=== PATIENT | female | born 1995 | race Caucasian/White ===

== ENCOUNTER 2016-10-23 16:06 | Inpatient (IN) | payer OTHER ==
[~2016-10-23] VITALS: Ht 165.1 cm; Wt 82.6 kg
[2016-10-23 17:15] VITALS: BP 125/67
[2016-10-23] MEDS ORDERED: METHYLERGONOVINE 0.2 MG/ML AMP IM PRN (17:15)
[2016-10-23] MEDS ORDERED: PROMETHAZINE 25 MG/ML VIAL IVP PRN (17:15)
[2016-10-23] MEDS ORDERED: CARBOPROST 250 MCG/ML AMP IM PRN (17:15)
[2016-10-23] MEDS ORDERED: OXYTOCIN 20 UNITS/LR PREMIX 1,000 ML IV SCH (17:15)
[2016-10-23] MEDS ORDERED: OXYTOCIN 10 UNITS/ML VIAL IM SCH ×2 (17:15→17:20)
[2016-10-23] MEDS ORDERED: NALBUPHINE HYDROCHLORIDE 10 MG/ML VIAL IVP PRN (17:15)
[2016-10-23] MEDS ORDERED: OXYTOCIN 20 UNITS/LR PREMIX 1,000 ML IV ONE (17:48)
[2016-10-23 18:06] LABS: BASOPHILS # (AUTO) 0.1 K/uL (0.00-0.22); BASOPHILS % (AUTO) 0.9 % (0.0-2.0); EOSINOPHILS # (AUTO) 0.2 K/uL (0-0.4); EOSINOPHILS % (AUTO) 2.7 % (0.0-4.0); HEMATOCRIT 35.6 % (36-48); HEMOGLOBIN 11.2 g/dL (12.0-16.0); LYMPHOCYTES # (AUTO) 2.4 K/uL (2.5-16.5); LYMPHOCYTES % (AUTO) 27.4 % (20.5-51.1); MEAN CORPUSCULAR HEMOGLOBIN 27 pg (27-31); MEAN CORPUSCULAR HGB CONC 31 g/dL (33-37); MEAN CORPUSCULAR VOLUME 86 fL (80-94); MONOCYTES # (AUTO) 0.7 K/uL (0.8-1.0); MONOCYTES % (AUTO) 7.3 % (1.7-9.3); NEUTROPHILS # (AUTO) 5.5 K/uL (1.8-7.7); NEUTROPHILS % (AUTO) 61.7 % (42.2-75.2); PLATELET COUNT (AUTO) 268 K/uL (140-450); RED BLOOD CELL COUNT(AUTO) 4.13 MIL/uL (4.20-5.40); RED CELL DISTRIBUTION WIDTH 14.2 % (11.6-13.7); WHITE BLOOD COUNT (AUTO) 8.9 K/uL (4.8-10.8)
[2016-10-23 18:12] LABS: APPEARANCE,URINE CLEAR (CLEAR); BILIRUBIN,URINE NEGATIVE (NEGATIVE); BLOOD, URINE NEGATIVE (NEGATIVE); COLOR,URINE YELLOW (YELLOW); LEUKOCYTE ESTERASE ,URINE NEGATIVE (NEGATIVE); NITRITE, URINE NEGATIVE (NEGATIVE); PROTEIN,URINE NEGATIVE (NEGATIVE); UGLUCOSE NEGATIVE (NEGATIVE); UROBILINOGEN,URINE 0.2 EU/dL (0.2 - 1)
[2016-10-23 18:17] LABS: BACTERIA,URINE RARE /HPF (None Seen); MUCUS,URINE 4+ /LPF (None Seen); RBC,URINE 0-3 /HPF (0-5); WBC,URINE 0-3 /HPF (0-5)
[2016-10-23] MEDS: LACTATED RINGERS 1,000 ML IV SCH (18:22)
[2016-10-23 18:29] LABS: ALBUMIN 2.7 g/dL (3.4-5.0); ANION GAP 13.8 (8-16); CALCIUM 8.5 mg/dL (8.5-10.1); CARBON DIOXIDE 23.7 mmol/L (21-32); CREATININE 0.5 mg/dL (0.6-1.3); POTASSIUM 3.5 mmol/L (3.5-5.1); TOTAL BILIRUBIN 0.2 mg/dL (0.0-1.0); TOTAL PROTEIN, SERUM 6.3 g/dL (6.4-8.2)
[2016-10-23] MEDS ORDERED: PREN-380 PO (19:25)
[2016-10-23] MEDS ORDERED: IRON65TA11 PO (19:25)
[2016-10-24] MEDS: LACTATED RINGERS 1,000 ML IV SCH ×2 (01:23→23:56)
[2016-10-24] MEDS ORDERED: PROMETHAZINE 25 MG/ML VIAL ONE ×2 (03:43→04:31)
[2016-10-24] MEDS ORDERED: NALBUPHINE HYDROCHLORIDE 10 MG/ML VIAL ONE ×2 (03:43→04:31)
[2016-10-24] MEDS ORDERED: LIDOCAINE 1% 500 MG/50 ML VIAL INJ SCH (04:50)
[2016-10-24] MEDS ORDERED: LIDOCAINE 1% 50 ML ONE (05:02)
[2016-10-24] MEDS ORDERED: OXYTOCIN 10 UNITS/ML VIAL ONE (05:13)
[2016-10-24] MEDS ORDERED: TEMAZEPAM 15 MG CAP PO PRN (05:45)
[2016-10-24] MEDS ORDERED: HYDROcodone/APAP 5/325 MG 1 TAB TAB PO PRN (05:45)
[2016-10-24] MEDS ORDERED: MEASLES, MUMPS, AND RUBELLA 1 VIAL SQVAC PRN (05:45)
[2016-10-24] MEDS ORDERED: OXYTOCIN 10 UNITS/ML VIAL IM PRN (05:45)
[2016-10-24] MEDS ORDERED: BENZOCAINE/MENTHOL 20%-0.5% 60 GM CAN TP PRN (05:45)
[2016-10-24] MEDS ORDERED: METHYLERGONOVINE 0.2 MG/ML AMP IM PRN (05:45)
[2016-10-24] MEDS ORDERED: oxyCODONE/APAP 5/325 MG 1 TAB TAB PO PRN (05:45)
[2016-10-24] MEDS ORDERED: WITCH HAZEL 40 PAD PACKAGE TP PRN (05:45)
--- NOTE | 2016-10-24 09:50 | NUR ---
PATIENT HAS BEEN SCREENED AND CATEGORIZED LOW NUTRITION RISK. PATIENT WILL BE SEEN WITHIN 7 DAYS OF ADMISSION. 10/30/[address]
[2016-10-24] MEDS ORDERED: DOCUSATE SOD/SENNA 50/8.6 MG 1 TAB PO SCH (21:00)
[2016-10-25 06:37] LABS: HEMATOCRIT 25.8 % (36-48); HEMOGLOBIN 8.5 g/dL (12.0-16.0)
[2016-10-25] MEDS ORDERED: BUPIVACAINE-MPF/EPI 0.5% 10 ML VIAL INJ ONE (07:33)
[2016-10-25] MEDS: LACTATED RINGERS 1,000 ML IV SCH ×3 (07:38→13:04)
[2016-10-25] MEDS ORDERED: ROCURONIUM 50 MG/5 ML VIAL IV ONE (09:26)
[2016-10-25] MEDS ORDERED: ONDANSETRON 4 MG/2 ML VIAL ONE (09:26)
[2016-10-25] MEDS ORDERED: KETOROLAC 30 MG/ML VIAL ONE (09:26)
[2016-10-25] MEDS ORDERED: PHENYLEPHRINE 10 MG/ML VIAL ONE (09:26)
[2016-10-25] MEDS ORDERED: SUCCINYLCHOLINE CHLORIDE 200 MG/10 ML VIAL IVP ONE (09:26)
[2016-10-25] MEDS ORDERED: GLYCOPYRROLATE 0.2 MG/ML VIAL ONE (09:26)
[2016-10-25] MEDS ORDERED: PROPOFOL 200 MG/20 ML VIAL IV ONE (09:26)
[2016-10-25] MEDS ORDERED: DESFLURANE 240 ML BTL INH ONE (09:26)
[2016-10-25] MEDS ORDERED: DEXAMETHASONE 4 MG/ML VIAL ONE (09:26)
[2016-10-25] MEDS ORDERED: fentaNYL 0.05 MG/ML VIAL ONE (09:44)
[2016-10-25] MEDS ORDERED: MIDAZOLAM 2 MG/2 ML VIAL ONE (09:44)
[2016-10-25] MEDS ORDERED: MORPHINE SULFATE 4 MG/ML SYR ONE ×3 (09:44→10:58)
[2016-10-25] MEDS ORDERED: METOCLOPRAMIDE 10 MG/2 ML INJ VIAL IVP PRN (10:20)
[2016-10-25] MEDS ORDERED: MORPHINE SULFATE 2 MG/ML SYR IVP PRN (10:20)
[2016-10-25] MEDS ORDERED: MORPHINE SULFATE 4 MG/ML SYR IVP PRN ×2 (10:20)
[2016-10-25] MEDS ORDERED: MIDAZOLAM 2 MG/2 ML VIAL IV ONE (10:20)
[2016-10-25] MEDS ORDERED: KETOROLAC 30 MG/ML VIAL IVP SCH (14:00)
[2016-10-26] MEDS: IBUPROFEN 800 MG TAB PO PRN ×2 (03:22→11:25)
== END 2016-10-26 12:25 | disposition home or self-care (01) | DRG 541 ==
LOC: MLD 16:06 → MFCC 10-24 08:35
PROVIDERS: ADMIT Obstetrics & Gynecology; ATTEND Obstetrics & Gynecology
PROC: 10E0XZZ Delivery of Products of Conception, External Approach (ICD-10-PCS; principal; 2016-10-24)
PROC: 10907ZC Drainage of Amniotic Fluid, Therapeutic from Products of Conception, Via Natural or Artificial Opening (ICD-10-PCS; 2016-10-24)
PROC: 0HQ9XZZ Repair Perineum Skin, External Approach (ICD-10-PCS; 2016-10-24)
PROC: 0UB70ZZ Excision of Bilateral Fallopian Tubes, Open Approach (ICD-10-PCS; 2016-10-25)
PROC: 3E0234Z Introduction of Serum, Toxoid and Vaccine into Muscle, Percutaneous Approach (ICD-10-PCS; 2016-10-26)
DX: O75.89 Other specified complications of labor and delivery (principal); O99.02 Anemia complicating childbirth; O09.43 Supervision of pregnancy with grand multiparity, third trimester; Z23 Encounter for immunization; Z30.2 Encounter for sterilization; Z37.0 Single live birth; O70.0 First degree perineal laceration during delivery; Z3A.39 39 weeks gestation of pregnancy
CPT/HCPCS: 36415; 80053; 81001; 85018; 85025; 86592; 86762; 86886; 86900; 86901; 90715; J0330; J1100; J1885; J2001; J2250; J2270; J2300; J2370; J2405; J2550; J2590; J2704; J3010; J3490; J7120